=== PATIENT | male | born 1950 | race Caucasian/White ===

== ENCOUNTER → 2016-10-27 | Outpatient (CLI) | payer MEDICARE, BC | END | disposition home or self-care (01) | LOC: GMAL 11:02 | PROVIDERS: ATTEND Family Medicine | DX: Z12.5 Encounter for screening for malignant neoplasm of prostate (principal); D51.3 Other dietary vitamin B12 deficiency anemia; E55.9 Vitamin D deficiency, unspecified | CPT/HCPCS: 82306; 82607; 84402; 84403; G0103 ==

== ENCOUNTER → 2016-12-01 | Outpatient (CLI) | payer MEDICARE, BC ==
--- NOTE | 2016-12-01 18:21 | US ---
EXAM DESCRIPTION: Liver CLINICAL HISTORY: 66 years, Male, FATTY CHANGE OF LIVER COMPARISON: Overall FINDINGS: Pancreas difficult to see due to overlying bowel gas. Visualized IVC unremarkable. Gallbladder does not demonstrate stones or wall thickening. Gallbladder appears partially contracted. Common bile duct 4 mm. Intrahepatic ducts not dilated. Liver 16.7 cm in length with coarse fatty echotexture. Detailed right kidney images are not provided. Visualized portions of the right kidney unremarkable. IMPRESSION: Technically somewhat difficult study due to bowel gas. Fatty liver. Remainder of the evaluation the liver and biliary system unremarkable Electronically signed by: Raúl Wright MD 12/01/2016 6:19 PM CDT
== END | disposition home or self-care (01) ==
LOC: LAB.O 15:38
PROVIDERS: ATTEND Internal Medicine Gastroenterology
DX: R94.5 Abnormal results of liver function studies (principal); K76.0 Fatty (change of) liver, not elsewhere classified

== ENCOUNTER → 2018-01-10 | Outpatient (CLI) | payer MEDICARE, BC | LOC: GMAL 12:49 | PROVIDERS: ATTEND Family Medicine | DX: R97.20 Elevated prostate specific antigen [PSA] (principal); E29.1 Testicular hypofunction ==

== ENCOUNTER 2020-04-01 05:50 | Day surgery (SDC) | payer MEDICARE, BC ==
[2020-04-01] MEDS ORDERED: BETAMETHASONE ACETATE/BETAMETH 6 MG/ML VIAL IM ONE ×2 (07:29→09:32)
[2020-04-01] MEDS ORDERED: BUPIVACAINE 0.5% 30 ML VIAL INJ ONE ×2 (07:29→09:32)
[2020-04-01] MEDS ORDERED: LIDOCAINE 1% 10 ML VIAL INJ ONE ×2 (07:29→09:32)
== END 2020-04-01 10:01 | disposition home or self-care (01) ==
LOC: AMB 05:50
PROVIDERS: ATTEND Family Medicine Sports Medicine
DX: M54.5 Low back pain (principal); M47.896 Other spondylosis, lumbar region; I25.10 Atherosclerotic heart disease of native coronary artery without angina pectoris; E78.2 Mixed hyperlipidemia; I10 Essential (primary) hypertension; K21.9 Gastro-esophageal reflux disease without esophagitis; K58.0 Irritable bowel syndrome with diarrhea; G47.00 Insomnia, unspecified; F40.10 Social phobia, unspecified; Z86.73 Personal history of transient ischemic attack (TIA), and cerebral infarction without residual deficits; Z82.49 Family history of ischemic heart disease and other diseases of the circulatory system; Z80.49 Family history of malignant neoplasm of other genital organs; Z83.79 Family history of other diseases of the digestive system; Z88.8 Allergy status to other drugs, medicaments and biological substances; Z79.82 Long term (current) use of aspirin; Z79.899 Other long term (current) drug therapy

== ENCOUNTER 2020-04-22 05:30 | Day surgery (SDC) | payer MEDICARE, BC ==
[2020-04-22] MEDS ORDERED: LIDOCAINE 1% 10 ML VIAL INJ ONE ×2 (07:14→08:40)
[2020-04-22] MEDS ORDERED: DEXAMETHASONE INJ 10 MG/ML VIAL ONE (07:14)
[2020-04-22] MEDS ORDERED: BETAMETHASONE ACETATE/BETAMETH 6 MG/ML VIAL IM ONE ×3 (07:14→08:50)
[2020-04-22] MEDS ORDERED: BUPIVACAINE 0.5% 30 ML VIAL INJ ONE ×2 (07:15→08:45)
== END 2020-04-22 09:05 | disposition home or self-care (01) ==
LOC: AMB 05:30
PROVIDERS: ATTEND Family Medicine Sports Medicine
DX: M47.896 Other spondylosis, lumbar region (principal); M54.5 Low back pain; I25.10 Atherosclerotic heart disease of native coronary artery without angina pectoris; E78.2 Mixed hyperlipidemia; K21.9 Gastro-esophageal reflux disease without esophagitis; I10 Essential (primary) hypertension; K58.0 Irritable bowel syndrome with diarrhea; G47.00 Insomnia, unspecified; Z86.73 Personal history of transient ischemic attack (TIA), and cerebral infarction without residual deficits; Z88.8 Allergy status to other drugs, medicaments and biological substances; Z79.82 Long term (current) use of aspirin; Z79.899 Other long term (current) drug therapy